=== PATIENT | female | born 1950 | race Caucasian/White ===

== ENCOUNTER 2017-12-05 11:10 | Outpatient (CLI) | payer MEDICARE ==
--- NOTE | 2017-12-05 14:05 | MMO ---
SCREENING MAMMOGRAPHY: DATE: 12/05/17. COMPARISON: None. HISTORY: Screening mammography. FINDINGS: The patient's mammogram is interpreted with the assistance of computer-aided detection. There are scattered fibroglandular densities present. There is no dominant mass lesion or architectu ral distortion. No concerning microcalcifications are noted. IMPRESSION: BI-RADS 1 - negative. Annual screening mammography advised. POS: [facility]
== END 2017-12-05 11:11 | disposition home or self-care (01) ==
LOC: SCSMAMMO 11:10
PROVIDERS: ATTEND Physician Assistant
DX: Z12.31 Encounter for screening mammogram for malignant neoplasm of breast (principal)
CPT/HCPCS: 77067

== ENCOUNTER 2019-09-30 09:47 | Outpatient (CLI) | payer MEDICARE ==
--- NOTE | 2019-09-30 11:16 | MMO ---
Bilateral MAMMO Bilat Screen [facility]. CLINICAL HISTORY: Patient is 69 years old and is seen for screening. The patient has no family history of breast cancer. The patient has no personal history of cancer. VIEWS: The views performed were: bilateral craniocaudal with tomosynthesis and bilateral mediolateral oblique with tomosynthesis. FILMS COMPARED: The present examination has been compared to a prior imaging study performed at [facility] on 12/05/2017. This study has been interpreted with the assistance of computer-aided detection. MAMMOGRAM FINDINGS: There are scattered fibroglandular densities. There are no suspicious masses, suspicious calcifications, or new areas of architectural distortion. IMPRESSION: THERE IS NO MAMMOGRAPHIC EVIDENCE OF MALIGNANCY. A ROUTINE FOLLOW-UP MAMMOGRAM IN 1 YEAR IS RECOMMENDED. THE RESULTS OF THIS EXAM WERE SENT TO THE PATIENT. ACR BI-RADS Category 1 - Negative MAMMOGRAPHY NOTE: 1. A negative mammogram report should not delay a biopsy if a dominant of clinically suspicious mass is present. 2. Approximately 10% to 15% of breast cancers are not detected by mammography. 3. Adenosis and dense breasts may obscure an underlying neoplasm. Reported by: SASHA ROWLAND MD Electonically Signed: [id number]
== END 2019-09-30 09:48 | disposition home or self-care (01) ==
LOC: BICMAMMO 09:47
PROVIDERS: ATTEND Physician Assistant
DX: Z12.31 Encounter for screening mammogram for malignant neoplasm of breast (principal)
CPT/HCPCS: 77063; 77067

== ENCOUNTER 2020-01-15 10:39 | Outpatient (CLI) | payer MEDICARE ==
--- NOTE | 2020-01-15 10:59 | RAD ---
PA AND LATERAL VIEWS CHEST: HISTORY: Cough. FINDINGS: The heart size is normal. The lungs are expanded without lobar consolidation, pneumothoraces, or ple ural effusions. There are degenerative changes in the spine. IMPRESSION: No acute process. POS: [facility]
== END 2020-01-15 10:40 | disposition home or self-care (01) ==
LOC: BICRAD 10:39
PROVIDERS: ATTEND Family Medicine
DX: R05 Cough (principal)
CPT/HCPCS: 71046; 87086

== ENCOUNTER 2021-09-28 09:48 | Outpatient (CLI) | payer MEDICARE | END 2021-09-28 09:49 | disposition home or self-care (01) | LOC: BICMAMMO 09:48 | PROVIDERS: ATTEND Nurse Practitioner Family | DX: Z12.31 Encounter for screening mammogram for malignant neoplasm of breast (principal); Z13.820 Encounter for screening for osteoporosis; Z78.0 Asymptomatic menopausal state; M85.89 Other specified disorders of bone density and structure, multiple sites | CPT/HCPCS: 77063; 77067; 77080 ==